=== PATIENT | female | born 1960 | race Caucasian/White ===

== ENCOUNTER 2017-03-10 15:17 | Emergency (ER) | payer MEDICAID ==
[2017-03-10 16:01] LABS: BASOPHILS # (AUTO) 0.1 10^3/uL (0.0-0.1); BASOPHILS % (AUTO) 0.8 %; EOSINOPHILS # (AUTO) 0.2 10^3/uL (0.0-0.7); EOSINOPHILS % (AUTO) 2.6 %; HGB - HEMOGLOBIN 12.5 g/dL (12.0-16.0); LYMPHOCYTES # (AUTO) 0.9 10^3/uL (1.5-3.5); LYMPHOCYTES % (AUTO) 14.4 %; MEAN CORPUSCULAR HEMOGLOBIN 28.5 pg (27.0-31.0); MEAN CORPUSCULAR HGB CONC 33.7 g/dL (32.0-36.0); MEAN CORPUSCULAR VOLUME 84.5 fL (81.0-99.0); MEAN PLATELET VOLUME 7.6 fL (7.9-10.8); MONOCYTES # (AUTO) 0.4 10^3/uL (0.0-1.0); NEUTROPHILS % (AUTO) 76.2 %; RED BLOOD COUNT 4.38 10^6/uL (4.20-5.40); RED CELL DISTRIBUTION WIDTH 14.3 % (12.0-15.0); UNCORRECTED WHITE BLOOD COUNT 6.5 x10^3/uL; WHITE BLOOD COUNT 6.5 x10^3/uL (4.8-10.8)
[2017-03-10 16:13] LABS: ALBUMIN/GLOBULIN RATIO 0.9 (1.0-2.2); BILIRUBIN,TOTAL 0.8 mg/dL (0.2-1.0); CREATININE 0.7 mg/dL (0.4-1.0); POTASSIUM 3.7 mmol/L (3.5-5.0); TOTAL PROTEIN 7.6 g/dL (6.7-8.2)
[2017-03-10] MEDS ORDERED: IBUPROFEN 400 MG TABLET PO STA (16:38)
[2017-03-10] MEDS ORDERED: ONDANSETRON ODT 4 MG TABLET TL STA (16:38)
[2017-03-10] MEDS ORDERED: ACETAMINOPHEN 325 MG TABLET PO STA (16:38)
[2017-03-10] MEDS ORDERED: ACETAMINOPHEN 325 MG TABLET PO ONE (16:48)
[2017-03-10] MEDS ORDERED: ONDANSETRON ODT 4 MG TABLET ONE (16:49)
[2017-03-10] MEDS ORDERED: IBUPROFEN 400 MG TABLET PO ONE (16:49)
--- NOTE | 2017-03-10 17:49 | ED Physician Documentation ---
History of Present Illness - Stated complaint Stated Complaint: FLU SYMPTOMS - Chief complaint Chief Complaint: Abd Pain - Additonal information Additional information: hx from pt 56 female from [facility] poorly controlled diabetic, HTN lipids to ER today with diarrhea and myalgias X 1 day [place] X 1 no blood in vomit or diarrhea no bad food travel sick contacts or recent travel Review of Systems Constitutional: reports: Myalgias, Fatigue. denies: Fever, Chills Cardiac: denies: Chest pain / pressure Respiratory: denies: Dyspnea, Cough GI: reports: Nausea, Vomiting, Diarrhea. 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 - Present Medications Home Medications: Ambulatory Orders Medication Instructions Recorded Confirmed Azithromycin [Zithromax] 250 mg PO DAILY #6 tablet 03/10/17 Blood Pressure Medication 03/10/17 Gabapentin 300 mg PO 03/10/17 Insulin Lispro [Humalog] 10 unit SUBQ ONCE 03/10/17 03/10/17 Losartan [Cozaar] 03/10/17 metFORMIN [Glucophage] 1,000 mg PO BIDWM 03/10/17 03/10/17 - Allergies Allergies/Adverse Reactions: Allergies Allergy/AdvReac Type Severity Reaction Status Date / Time No Known Drug Allergies Allergy Verified 03/10/17 15:33 - Social History Does the pt smoke?: No Smoking Status: Never smoker - Immunizations Immunizations are current?: Yes PD ED PE NORMAL - Vitals Vital signs reviewed: Yes - General General: Alert and oriented X 3 - Cardiac Cardiac: RRR - Respiratory Respiratory: No respiratory distress, Clear bilaterally - Abdomen Abdomen: Soft, Non tender - Derm Derm: Normal color - Neuro Neuro: Alert and oriented X 3 Results - Vitals Vitals: Vital Signs - 24 hr 03/10/17 03/10/17 03/10/17 15:34 16:52 18:43 Temperature 36.7 C 36.8 C 36.6 C Heart Rate 93 90 90 Respiratory 18 15 16 Rate Blood Pressure 161/87 H 154/86 H 138/87 H O2 Saturation 97 97 97 Oxygen O2 Source Room air - EKG (time done) 1704 Rate: Mik (92) Rhythm: NSR [place]: Normal Intervals: Normal [place] Ischemia: Normal ST segments - Labs Labs: Microbiology 03/10/17 16:35 Campylobacter Antigen Assay - Final Stool Laboratory Tests 03/10/17 03/10/17 03/10/17 15:44 15:52 15:52 WBC 6.5 RBC 4.38 Hgb 12.5 Hct 37.0 MCV 84.5 MCH 28.5 MCHC 33.7 RDW 14.3 Plt Count 268 MPV 7.6 L Neut # 5.0 Lymph # 0.9 L Isabella # 0.4 Eos # 0.2 Baso # 0.1 Absolute Nucleated RBC 0.00 Nucleated RBC % 0.0 Sodium 134 L Potassium 3.7 Chloride 96 L Carbon Dioxide 25 Anion Gap 13.0 BUN 10 Creatinine 0.7 Estimated GFR (MDRD) 87 L Glucose 293 H POC Whole Bld Glucose 315 H Calcium 9.0 Total Bilirubin 0.8 AST 21 ALT 22 Alkaline Phosphatase 119 Total Protein 7.6 Albumin 3.7 Globulin 3.9 Albumin/Globulin Ratio 0.9 L Lipase 25 Urine Color Urine Clarity Urine pH Ur Specific [place] Urine Protein Urine Glucose (UA) Urine Ketones Urine Occult Blood Urine Nitrite Urine Bilirubin Urine Urobilinogen Ur Leukocyte Esterase Urine RBC Urine WBC Ur Squamous Epith Cells Amorphous Sediment Urine Bacteria Ur Microscopic Review Urine Culture Comments Influenza A (Rapid) Influenza B (Rapid) Influenza Types A,B Ag 03/10/17 03/10/17 16:20 16:35 WBC RBC Hgb Hct MCV MCH MCHC RDW Plt Count MPV Neut # Lymph # Isabella # Eos # Baso # Absolute Nucleated RBC Nucleated RBC % Sodium Potassium Chloride Carbon Dioxide Anion Gap BUN Creatinine Estimated GFR (MDRD) Glucose POC Whole Bld Glucose Calcium Total Bilirubin AST ALT Alkaline Phosphatase Total Protein Albumin Globulin Albumin/Globulin Ratio Lipase Urine Color YELLOW Urine Clarity CLOUDY Urine pH 6.0 Ur Specific [place] >=1.030 H Urine Protein 100 H Urine Glucose (UA) 500 H Urine Ketones TRACE Urine Occult Blood LARGE H Urine Nitrite NEGATIVE Urine Bilirubin NEGATIVE Urine Urobilinogen 0.2 (NORMAL) Ur Leukocyte Esterase NEGATIVE Urine RBC None Seen Urine WBC 6-10 H Ur Squamous Epith Cells MANY Squamous H Amorphous Sediment Marked Urine Bacteria None Seen Ur Microscopic Review INDICATED Urine Culture Comments NOT INDICATED Influenza A (Rapid) Negative Influenza B (Rapid) Negative Influenza Types A,B Ag - - Rads (name of study) CXR Radiology: See rad report (lingular infiltrate) PD MEDICAL DECISION MAKING - ED course ED course: pt asked to provide stool sample for culture upon returning from bathroom she advised nurse she had developed left sided chest pain rad to posterior shoulder i went to see pt - pain as above, no soa no diaphoresis no NC states it hurts to move, she is TTP upper lateral l chest wall, she thinks she may have strained something while having so many BMs EKG s acute ischemia, will check CXR, but think this is musculoskeletal Departure - Departure Disposition: Home, Self Care Clinical Impression: Pneumonia Qualifiers: Pneumonia type: due to unspecified organism Laterality: left Lung location: unspecified part of lung Qualified Code(s): J18.9 - Pneumonia, unspecified organism Condition: Good Instructions: ED Pneumonia Adult Prescriptions: Azithromycin [Zithromax] 250 mg PO DAILY #6 tablet Comments: Your blood work was OK except for the poorly controlled glucose - you need to work with your PMD to get better control because high sugars cause terminal gauger damage The influenza swabs were negative The EKG was fine But the xray shows pneumonia So I prescribed antibiotics for you to take Please follow up with your PMD for a recheck next week May take imodium for the diarrhea - we will call you if the culture is positive and needs treatment
[2017-03-10] MEDS ORDERED: LIDOCAINE PATCH 5% TOP STA (17:50)
[2017-03-10] MEDS ORDERED: LIDOCAINE PATCH 5% TOP ONE ×2 (18:06→18:16)
[2017-03-10 18:44] VITALS: BP 138/87
[2017-03-10 18:48] LABS: UA w/ MICROSCOPIC CHARGE YES
[2017-03-10 18:54] LABS: BILIRUBIN,URINE NEGATIVE (NEGATIVE)
[2017-03-10 18:55] LABS: UR CULTURE IF IND NOT INDICATED
--- NOTE | 2017-03-10 18:56 | XRAY Preliminary Report ---
Exam: XR CHEST 2 VIEW PA/LAT IMPRESSION: Mild lingular airspace disease, could represent pneumonia. [facility] SITE ID: [id number]
--- NOTE | 2017-03-10 18:58 | XRAY Report ---
EXAM: CHEST RADIOGRAPHY EXAM DATE: 03/10/2017 06:08 PM. CLINICAL HISTORY: LEFT chest pain. COMPARISON: None. TECHNIQUE: 2 views. FINDINGS: Lungs/Pleura: Mild lingular airspace disease, could represent pneumonia. No pleural effusion or pneum othorax. Mediastinum: Heart and mediastinal contours are unremarkable. Other: No acute bone findings are seen. IMPRESSION: Mild lingular airspace disease, could represent pneumonia. [facility] Referring Provider Line: [phone] SITE ID: [id number]
== END 2017-03-10 19:15 | disposition home or self-care (01) ==
LOC: ED 15:17
DX: J18.9 Pneumonia, unspecified organism (principal); E11.65 Type 2 diabetes mellitus with hyperglycemia; Z79.4 Long term (current) use of insulin; I10 Essential (primary) hypertension; E78.5 Hyperlipidemia, unspecified; J45.909 Unspecified asthma, uncomplicated; K21.9 Gastro-esophageal reflux disease without esophagitis
CPT/HCPCS: 36415; 71020; 80053; 81001; 83690; 85025; 87045; 87046; 87275; 87276; 93005; 99283; 99284; A9270; Q0162; 81003; 87086